=== PATIENT | male | born 1980 | race Caucasian/White ===

== ENCOUNTER 2017-04-09 07:39 | Emergency (ER) | payer BC ==
[2017-04-09 07:47] VITALS: BP 154/90
--- NOTE | 2017-04-09 09:26 | UC ---
Respiratory Complaint HPI - HPI Summary HPI Summary: PT WITH 5 DAY H/O ST(PRIMARILY WITH COUGH), COUGH(PRODUCTIVE OF CLEAR SPUTUM, INTERFERRING WITH SLEEP), MATOS, NAASAL DRAINAGE, BODY ACHES, LOSS OF APPETITE AND 1 EPISODE OF VOMITING. - History of Current Complaint Chief Complaint: UCRespiratory Stated Complaint: SORE THROAT,BODY ACHES,NAUSEA Time Seen by Provider: 04/09/17 08:10 Hx Obtained From: Patient Onset/Duration: Gradual Onset, Lasting Days, Still Present Timing: Constant Severity Initially: Moderate Severity Currently: Moderate Pain Intensity: 4 Character: Cough: Productive Aggravating Factors: Deep Breaths, Recumbent Position Alleviating Factors: Upright Position Associated Signs And Symptoms: Positive: Dyspnea, Fever, Chills, Pleuritic Chest Pain, Wheezing, URI. Negative: Hemoptysis, Nasal Congestion, Hoarseness, Sinus Discomfort - Allergies/Home Medications Allergies/Adverse Reactions: Allergies Allergy/AdvReac Type Severity Reaction Status Date / Time Sulfamethoxazole Allergy Unknown Verified 04/09/17 07:48 w/Trimethoprim Reaction [From Bactrim] Details Home Medications: Home Medications Hydrochlorothiazide TAB* [Hydrodiuril TAB*] 25 mg PO DAILY 04/09/17 [History Confirmed 04/09/17] PMH/Surg Hx/FS Hx/Imm Hx Cardiovascular History: Hypertension - Surgical History Surgical History: None - Family History Known Family History: Positive: Cardiac Disease, Hypertension, Diabetes - Social History Occupation: Employed Full-time Lives: With Family Alcohol Use: Occasionally Substance Use Type: None Smoking Status (MU): Former Smoker Type: Cigarettes Amount Used/How Often: 1/2 ppd When Did the Patient Quit Smoking/Using Tobacco: Sep 2016 Review of Systems Constitutional: Fever, Chills, Fatigue Skin: Negative Eyes: Negative ENT: Sore Throat, Nasal Discharge Respiratory: Cough Cardiovascular: Chest Pain - PLEURITIC Gastrointestinal: Vomiting - 1 EPISODE, Other - LOSS OF APPETITE Genitourinary: Negative Neurological: Headache All Other Systems Reviewed And Are Negative: Yes Physical Exam Triage Information Reviewed: Yes Appearance: Well-Appearing, No Pain Distress, Well-Nourished Vital Signs: Initial Vital Signs Temp 102 F 04/09/17 07:43 Pulse 110 04/09/17 07:43 Resp 18 04/09/17 07:43 BP 154/90 04/09/17 07:43 Pulse Ox 100 04/09/17 07:43 Vital Signs Reviewed: Yes Eyes: Positive: Conjunctiva Clear. Negative: Discharge ENT: Positive: Hearing grossly normal, Pharyngeal erythema, Nasal drainage - CLEAR, TMs normal. Negative: Tonsillar swelling, Tonsillar exudate, Trismus, Muffled/hoarse voice Dental Exam: Normal Neck: Positive: Supple, Tenderness @, Enlarged Nodes @ Respiratory: Positive: Lungs clear, No respiratory distress, No accessory muscle use, Expiration - PROLONGED AT BL BASES Cardiovascular: Positive: RRR, No Murmur Abdomen Description: Positive: Nontender, Soft. Negative: Distended, Guarding Bowel Sounds: Positive: Present Musculoskeletal Exam: Normal Neurological: Positive: Alert, Muscle Tone Normal Psychological: Positive: Age Appropriate Behavior Skin Exam: Normal UC Diagnostic Evaluation - Laboratory O2 Sat by Pulse Oximetry: 100 Respiratory Course/Dx - Course Course Of Treatment: PT WITH EXISTING DX OF HTN P/W ELEVATED BP LIKELY D/T CURRENT CONDITION - Differential Dx/Diagnosis Differential Diagnosis/HQI/PQRI: Bronchitis, Lower Resp Infection Provider Diagnoses: BRONCHITIS Discharge - Discharge Plan Condition: Stable Disposition: HOME Prescriptions: Albuterol HFA INHALER* [Ventolin HFA Inhaler*] 2 puff INH Q4H PRN #1 mdi PRN Reason: Sob/Wheezing Azithromycin TAB* [Zithromax TAB (Z-DEEPTI) 250 mg #6 tabs] 0 mg PO .SEE INSTRUCTIONS #6 tab Benzonatate CAP* [Tessalon 100 MG CAP*] 100 mg PO TID #30 cap guaiFENesin ER TAB [Mucinex*] 600 mg PO BID PRN #1 box PRN Reason: Cough guaiFENesin/CODIEN 100MG-10MG* [Robitussin AC 100Mg-10Mg*] 5 - 10 ml PO BEDTIME PRN #100 udc MDD 10ml PRN Reason: Cough Patient Education Materials: Acute Bronchitis (ED) Additional Instructions: INHALED BRONCHODILATORS: You have received a prescription for an inhaled bronchodilator -- a medication which stimulates the airways in the lung to dilate. This improves the flow of air in asthma, bronchitis, and emphysema. These medicines have some similarity to adrenaline, and can cause similar side effects: shakiness, racing heart, and a sense of nervousness. These side effects decrease with time. Contact your doctor if these side effects are severe. Do not over-use the medicine. Too-frequent use of the inhaler may make it ineffective. Call your doctor if the inhaler is not controlling your symptoms at the prescribed doses. COUGH-SUPPRESSANT & EXPECTORANT MEDICATION: You are to use a cough medication as needed for relief of symptoms. This medicine is a combination of an expectorant (to make the mucous thinner and more easily "coughed up") and a cough suppressant (to reduce the frequency of coughing). The cough-suppressant medicine is related to narcotics. You may experience mild nausea and sleepiness. Some patients who are very sensitive to narcotics may have stomach pain from this medicine. Taking the medicine with food reduces these side effects. Do not drive or work with machinery until you know how this medicine affects you. The expectorant should have no side effects. Iodine-containing expectorants (such as organidin) should not be taken by persons with active thyroid disease unless approved by your doctor. Call the doctor if you develop shortness of breath, hives, rash, itching, lightheadedness, or severe nausea and vomiting. EXPECTORANT MEDICATION: WE SENT IN A SCRIPT FOR MUCINEX SO THAT IT IS EASIER FOR YOU TO PICK THE RIGHT MED AT THE PHARMACY. HOWEVER, YOU CAN ALSO GO TO THE [employer]ORE AND BUY PLAIN GUAIFENESIN WITHOU BINDERS OR FILLERS. An expectorant medicine has been prescribed. This type of drug makes mucous thinner, helping the sinuses, nose, and bronchial tubes to remain free of pus and mucous. Expectorants make a cough less severe and more comfortable, and help infected sinuses drain. In general, antihistamines defeat the purpose of the expectorant by making mucous thicker. They should be avoided unless specifically recommended by your physician. TESSALON PERLES: You have received a prescription for Tessalon Perles (benzonatate). This is a non-narcotic medicine for relief of cough. It usually works in about 15- 20 minutes and lasts around four hours. Tessalon Perles should be swallowed. They should not be chewed or dissolved in the mouth (this can produce temporary numbing of the mouth and choking can occur). If you develop any adverse effects such as wheezing, shortness of breath, hives, rash, itching, or lightheadedness, please return at once. ANTIBIOTICS ARE NOT CURRENTLY INDICATED FOR YOUR CONDITION. HOWEVER, IF YOUR SYMPTOMS WORSEN OR PERSIST FOR MORE THAN 5 MORE DAYS, YOU CAN TAKE THE FOLLOWING MEDICATION: AZITHROMYCIN: Azithromycin (Zithromax) is a broad spectrum antibiotic in the same class as erythromycin. It can treat a variety of bacterial infections, but is most frequently used for respiratory infections. Azithromycin is extremely long-lasting. It accumulates in body tissues and continues to kill bacteria for many days. In order to improve absorption, Azithromycin should be taken at least one hour before or two hours after a meal. It does not have the same strong tendency to upset the stomach as erythromycin and is usually very well tolerated. Patients who have had a rash or other true allergic reactions to erythromycin should not take this medication. Call if you develop gastrointestinal distress, severe diarrhea, rash, hives, itching, or shortness of breath. ANYTIME YOU TAKE AN ANTIBIOTIC, IT IS IMPORTANT TO REPLENISH THE BODY'S SUPPLY OF "GOOD BACTERIA." YOU CAN GET GOOD BACTERIA FROM HIGH QUALITY CULTURED FOODS SUCH LOCAL YOGURT, SOUR KRAUT, ENDY JP, NATURALLY FERMENTED PICKLES AND PROBIOTIC DRINKS. YOU CAN ALSO GET GOOD BACTERIA FROM A PROBIOTIC SUPPLEMENT.
== END 2017-04-09 09:37 | disposition home or self-care (01) ==
LOC: UCCORT 07:39
DX: J40 Bronchitis, not specified as acute or chronic (principal); I10 Essential (primary) hypertension; Z88.2 Allergy status to sulfonamides
CPT/HCPCS: 87651; 99202; G0463

== ENCOUNTER 2019-06-20 10:31 | Day surgery (SDC) | payer BC ==
[~2019-06-20 10:31] MED LIST: Buffered Lidocaine 1% SYRIN* 1 ML/SYRINGE INTRADERM ONE; Lactated Ringers 1000 ML Bag* 1,000 ML IV SCH; Sodium Citrate/Citric Acid* 15 ML UDC PO ONE
[2019-06-20] MEDS ORDERED: Sodium Citrate/Citric Acid* 15 ML UDC ONE (10:37)
[2019-06-20] MEDS ORDERED: ceFAZolin 2 GM PREMIX in ORs 2 GM/50 ML BAG ONE (10:38)
[2019-06-20] MEDS ORDERED: Lidocaine 1% INJ* 10 MG/ML 30 ML SDV ONE (11:21)
[2019-06-20] MEDS ORDERED: Propofol* 10 MG/ML 20 ML BTL ONE ×2 (11:48→12:05)
[2019-06-20] MEDS ORDERED: Lidocaine 2% PF * 5 ML VIAL ONE (11:48)
[2019-06-20] MEDS ORDERED: fentaNYL* 50 MCG/ML 2 ML VIAL (100 MCG VIAL) ONE (11:55)
[2019-06-20] MEDS ORDERED: Dexamethasone IV* 4 MG/ML 1 ML (4 MG) ONE (12:05)
[2019-06-20] MEDS ORDERED: Ketorolac INJ* 30 MG/ML 1 ML VIAL ONE (12:05)
[2019-06-20] MEDS ORDERED: Bupivacaine 0.5% SDV PF* 30ML VIAL ONE (12:20)
[2019-06-20] MEDS ORDERED: Ondansetron INJ* 2 MG/ML VIAL ONE (12:22)
[2019-06-20] MEDS ORDERED: Acetaminophen IV 1GM/100ML * 1,000 MG/100 ML VIAL IVPB ONE (13:59)
[2019-06-20] MEDS ORDERED: fentaNYL* 50 MCG/ML 2 ML VIAL (100 MCG VIAL) IV PRN (13:59)
[2019-06-20] MEDS ORDERED: DiMENhydriNATE IV* 50 MG/ML VIAL IV PUSH PRN (13:59)
[2019-06-20] MEDS ORDERED: Naloxone* 0.4 MG/ML 1 ML VIAL IV PRN (13:59)
[2019-06-20] MEDS ORDERED: Acetaminophen IV 1GM/100ML * 100 ML ONE (14:03)
[2019-06-20 15:26] VITALS: BP 141/95
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
--- NOTE | 2019-06-24 08:45 | OP ---
CC: Dr. Ortiz OPERATIVE NOTE: ADDENDUM: There is a blank in the description of procedure. There was a complete tear of the scapholunate ligament and I was able to drive through to the mid carpal joint from the radial carpal joint. [id number]/[facility]PS #: [id number] MTDD
== END 2019-06-20 15:04 | disposition home or self-care (01) ==
LOC: OREAST 10:31
PROVIDERS: ATTEND Orthopaedic Surgery
DX: S63.512A Sprain of carpal joint of left wrist, initial encounter (principal); X50.0XXA Overexertion from strenuous movement or load, initial encounter; Y92.838 Other recreation area as the place of occurrence of the external cause; I10 Essential (primary) hypertension; K21.9 Gastro-esophageal reflux disease without esophagitis; F17.210 Nicotine dependence, cigarettes, uncomplicated
CPT/HCPCS: 76000; A9270-GY; C1713; C1776; J0690; J1100; J1885; J2405; J2704; J3010; J3490

== ENCOUNTER 2019-08-22 09:45 | Day surgery (SDC) | payer BC ==
--- NOTE | 2019-08-08 04:55 | HP ---
HISTORY AND PHYSICAL: DATE OF ADMISSION/SURGERY: 08/22/19 DATE OF OFFICE VISIT: 08/06/19 SURGEON: Taylor Ortiz MD.* (DICTATED BY CAIO JEREZ) PROCEDURE: Removal of hardware, left wrist. CHIEF COMPLAINT: Left wrist pain. HISTORY OF PRESENT ILLNESS: Mr. Santiago is a 38-year-old gentleman who underwent a left wrist arthroscopy and scapholunate ligament repair on 06/20/19. He is doing well; however, he elects to have the hardware removed from his left wrist and this is scheduled for 08/22/19. PAST MEDICAL HISTORY: Hypertension. PAST SURGICAL HISTORY: Ear tubes and left wrist arthroscopy with scapholunate ligament repair. CURRENT MEDICATIONS: 1. Chantix. 2. Lisinopril. ALLERGIES: BACTRIM. FAMILY HISTORY: Diabetes and coronary artery disease. SOCIAL HISTORY: He is a 38-year-old gentleman, lives with his girlfriend. He smokes a quarter to half a pack a day of cigarettes. He uses occasional alcohol and marijuana. REVIEW OF SYSTEMS: A complete 14-point review of systems was reviewed with the patient. It was all negative or noncontributory. He denies history of DVT, PE , hepatitis, HIV, or anesthesia problems. PHYSICAL EXAMINATION GENERAL: He is well developed, well nourished, in no acute distress. VITAL SIGNS: He stands 68 inches tall, weighs 155 pounds. Blood pressure is 124/68 and pulse is 78. HEENT: Normocephalic, atraumatic. NECK: Supple. No palpable lymph nodes. PULMONARY: The lungs are clear to auscultation bilaterally. CARDIO: Regular rate and rhythm. Strong S1, S2. ABDOMEN: Soft, nontender, nondistended. NEUROLOGICAL: He is alert and oriented x3. MUSCULOSKELETAL: Left upper extremity: The skin is intact. There are no open wounds or abrasions. He has a 2+ distal pulse. He has intact sensation. ASSESSMENT AND PLAN: Mr. Santiago is a 38-year-old gentleman who underwent a left wrist arthroscopy with scapholunate ligament repair on 06/20/[address] Ortiz. He has elected to have the hardware removed the left wrist and this is scheduled for 08/22/19. The risks and benefits were discussed with the patient today and all of his questions were answered. He will follow up with Dr. Ortiz in 7 to 10 days after the surgery. CAIO JEREZ [id number]/[facility] #: [id number] KUSUM
[~2019-08-22 09:45] MED LIST changes: +Famotidine IV* 10 MG/ML 2 ML (20 mg) IV ONE; +Famotidine IV* 10 MG/ML 2 ML (20 mg) ONE; -Sodium Citrate/Citric Acid* 15 ML UDC PO ONE
[2019-08-22] MEDS ORDERED: Midazolam* 1 MG/ML 5 ML VIAL (5 MG) ONE (11:00)
[2019-08-22] MEDS ORDERED: Propofol* 10 MG/ML 20 ML BTL ONE (11:05)
[2019-08-22] MEDS ORDERED: Ketorolac INJ* 30 MG/ML 1 ML VIAL ONE (11:05)
[2019-08-22] MEDS ORDERED: Lidocaine 2% PF * 5 ML VIAL ONE (11:05)
[2019-08-22] MEDS ORDERED: Ondansetron INJ* 2 MG/ML VIAL ONE (11:05)
[2019-08-22] MEDS ORDERED: Bupivacaine 0.5% SDV PF* 30ML VIAL ONE (11:27)
[2019-08-22] MEDS ORDERED: Midazolam* 1 MG/ML 2 ML VIAL (2 MG) ONE (11:49)
[2019-08-22] MEDS ORDERED: fentaNYL* 50 MCG/ML 2 ML VIAL (100 MCG VIAL) ONE (11:50)
[2019-08-22] MEDS ORDERED: Naloxone* 0.4 MG/ML 1 ML VIAL IV PRN (12:02)
[2019-08-22] MEDS ORDERED: Acetaminophen TAB* 325 MG PO PRN (12:02)
[2019-08-22 12:56] VITALS: BP 138/92
--- NOTE | 2019-08-22 23:58 | OP ---
CC: Dr. Ortiz OPERATIVE REPORT: DATE OF OPERATION: 08/22/19 DATE OF : 80 SURGEON: Taylor Ortiz MD NOTCHING MACHINE OPERATOR: CAIO Polanco ANESTHESIA: Local MAC. PRE-OP DIAGNOSIS: Status post scapholunate ligament repair of the left wrist. POST-OP DIAGNOSIS: Status post scapholunate ligament repair of the left wrist. OPERATIVE PROCEDURE: Pin removal, left wrist. ESTIMATED BLOOD LOSS: Zero. TOURNIQUET TIME: About 10 minutes. INDICATION FOR PROCEDURE: Shiva is a 38-year-old male who had a scapholunate ligament repair about 2 months ago. He presents for pin removal. DESCRIPTION OF PROCEDURE: The patient was brought to the operating room and was given a sedation ane sthetic and local infiltration of 10 cc of 1% plain lidocaine on the radial aspect of his left wrist. Skin of his left upper extremity was prepped and draped in the usual sterile fashion. The hand and forearm were exsanguinated and the tourniquet elevated to 250 mmHg. A longitudinal incision was mad e measuring about 5 mm in length over each pin and the pins were removed without difficulty. The wou nds were irrigated and the skin edges were reapproximated with 4-0 nylon suture. The wounds were val ssed with Xeroform, 4x4, Webril, and an Hernan wrap with a volar splint. The patient tolerated the proc edure well and was brought to the recovery room in good condition. [id number]/[facility] #: [id number]
== END 2019-08-22 12:45 | disposition home or self-care (01) ==
LOC: OREAST 09:45
PROVIDERS: ATTEND Orthopaedic Surgery
DX: Z47.2 Encounter for removal of internal fixation device (principal); I10 Essential (primary) hypertension; F17.210 Nicotine dependence, cigarettes, uncomplicated; S63.512D Sprain of carpal joint of left wrist, subsequent encounter; X58.XXXD Exposure to other specified factors, subsequent encounter; Y92.9 Unspecified place or not applicable; K21.9 Gastro-esophageal reflux disease without esophagitis; Z87.442 Personal history of urinary calculi
CPT/HCPCS: 88300; J1885; J2250; J2405; J2704; J3010; J3490

== ENCOUNTER 2019-09-02 11:31 | Day surgery (SDC) | payer BC ==
--- NOTE | 2019-08-28 13:32 | HP ---
AMENDED REPORT NOW INCLUDES DESIGNATED COSIGNER PREOPERATIVE HISTORY AND PHYSICAL: DATE OF ADMISSION/SURGERY: 09/02/19 DATE OF OFFICE VISIT/ENCOUNTER: 08/28/19 ATTENDING SURGEON: Taylor Ortiz MD * (DICTATED BY CAIO STAFFORD) PROCEDURE: Left thumb tendon transfer. HISTORY OF PRESENT ILLNESS: This is a 38-year-old male who underwent a left wrist scapholunate ligament repair on 06/20/19 and subsequent pin removal on . He continued to work throughout the postoperative period. While at work a few days ago, he twisted his wrist. He was not lifting anything, but he felt a sudden pop and then he was not able to use his thumb very well. He is not complaining of any pain. He is having trouble extending his thumb at the IP joint. After evaluation, it was determined that he has ruptured his extensor pollicis longus tendon. Dr. Ortiz is recommending surgical intervention at this time for best outcome and the patient has consented to proceed. PAST MEDICAL HISTORY: Hypertension. PAST SURGICAL HISTORY: 1. Ear tube placement. 2. Left wrist arthroscopy with scapholunate ligament repair. 3. Pin removal, left wrist. CURRENT MEDICATIONS: 1. Chantix 0.5 mg daily. 2. Lisinopril 1 tab daily. ALLERGIES: BACTRIM. FAMILY MEDICAL HISTORY: Diabetes and coronary artery disease. SOCIAL HISTORY: The patient is a 38-year-old male. He lives with his girlfriend. 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 He is a current smoker, he smokes a quarter to a half pack per day, but he is trying to quit. He smokes marijuana occasionally and drinks alcohol on occasion. REVIEW OF SYSTEMS: Negative for general, cephalic, cardiovascular, respiratory , GI, , other musculoskeletal, integumentary, endocrine, neurologic, and hematologic symptoms. Infectious Disease: Negative for MRSA, hepatitis C, HIV. PHYSICAL EXAMINATION GENERAL: A well-developed, well-nourished 38-year-old male, in no acute distress. VITAL SIGNS: Height 5 feet 8 inches, weight 155 pounds. Pulse rate 100, blood pressure 168/98. HEENT: Normocephalic, atraumatic. Pupils are equal, round, and reactive to light and accommodation. Extraocular movements are intact. Throat is clear. NECK: Supple. No palpable lymph nodes. PULMONARY: Lungs are clear to auscultation bilaterally. No wheezes, rales, or rhonchi. CARDIOVASCULAR: Regular rate and rhythm. S1, S2. No murmurs, rubs, or gallops. No edema. ABDOMEN: Positive bowel sounds. Soft, nontender. NEUROLOGICAL: Alert and oriented x3. Cranial nerves II through XII are intact. Sensation is intact to light touch. MUSCULOSKELETAL: On exam of his left hand, his extensor pollicis longus is not functioning. The incisions from the pin removal are benign and sutures are in place. His EPL has defect as it is palpated along its length that it is discontinuous right at the site of the pins. He is not able to extend his thumb IP joint. His skin is otherwise intact. Incisions are healing nicely. Neurovascular function is intact. IMPRESSION: Left extensor pollicis longus rupture after scapholunate ligament repair. PLAN: The patient is scheduled to undergo a right thumb tendon transfer from the EIP to the EPL with Dr. Ortiz on 09/02/19. He will return to the office 10 days postop for followup and suture removal. A prescription for Marshall was e-scribed to the patient's pharmacy for postoperative pain management. CAIO STAFFORD [id number]/[facility] #: [id number] MTDD
[~2019-09-02 11:31] MED LIST changes: +Dexamethasone IV* 4 MG/ML 1 ML (4 MG) IV SLOW PU ONE; -Famotidine IV* 10 MG/ML 2 ML (20 mg) ONE
[2019-09-02] MEDS ORDERED: ceFAZolin 2 GM PREMIX in ORs 2 GM/50 ML BAG ONE (11:36)
[2019-09-02] MEDS ORDERED: Dexamethasone IV* 4 MG/ML 1 ML (4 MG) ONE (11:36)
[2019-09-02] MEDS ORDERED: Famotidine IV* 10 MG/ML 2 ML (20 mg) ONE (11:36)
[2019-09-02] MEDS ORDERED: Lidocaine 1% INJ* 10 MG/ML 30 ML SDV ONE (14:01)
[2019-09-02] MEDS ORDERED: fentaNYL* 50 MCG/ML 2 ML VIAL (100 MCG VIAL) ONE (14:17)
[2019-09-02] MEDS ORDERED: KETAMINE HCL* 50 MG/ML 10 ML VIAL ONE (14:17)
[2019-09-02] MEDS ORDERED: Midazolam* 1 MG/ML 2 ML VIAL (2 MG) ONE (14:17)
[2019-09-02] MEDS ORDERED: Bupivacaine 0.5% SDV PF* 30ML VIAL ONE (14:47)
[2019-09-02] MEDS ORDERED: HYDROmorphone INJ1* 1 MG/ML SYRINGE IV PRN (15:21)
[2019-09-02] MEDS ORDERED: DiMENhydriNATE IV* 50 MG/ML VIAL IV PUSH PRN (15:21)
[2019-09-02] MEDS ORDERED: Naloxone* 0.4 MG/ML 1 ML VIAL IV PRN (15:21)
[2019-09-02] MEDS ORDERED: fentaNYL* 50 MCG/ML 2 ML VIAL (100 MCG VIAL) IV PRN (15:21)
[2019-09-02 16:53] VITALS: BP 156/105
--- NOTE | 2019-09-02 19:58 | OP ---
DATE OF OPERATION: 09/02/[address] [facility] DATE OF : 80 SURGEON: Taylor Ortiz MD GLASS BLOWING LATHE OPERATOR: CAIO Alvarado ANESTHESIA: General. PRE-OP DIAGNOSIS: Extensor pollicis longus tendon rupture on the left. POST-OP DIAGNOSIS: Extensor pollicis longus tendon rupture on the left. OPERATIVE PROCEDURE: EIP to EPL tendon transfer. ESTIMATED BLOOD LOSS: Zero. TOURNIQUET TIME: About 25 minutes. INDICATIONS FOR PROCEDURE: Shiva is a 38-year-old male, who suffered a scapholunate ligament injury several months ago. He had a scapholunate ligament repair. He had pins placed. They were left in place for 8 weeks and then were removed. Shortly after the pins were removed, the patient felt a pop in his wrist and then was unable to extend his thumb. 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 On exam, he had ruptured his EPL tendon probably where the EPL tendon encountered the pins from the scapholunate ligament repair. He presents for EIP to EPL tendon transfer. DESCRIPTION OF PROCEDURE: The patient was brought to the operating room, was given a general anesthetic and placed in the supine position on the operating table with a tourniquet around his left upper arm. The skin of his left upper extremity was prepped and draped in the usual sterile fashion. The upper extremity was exsanguinated and the tourniquet elevated to 250 mmHg. A zig-zag incision was made centered at the site of the pin removal and we were able to visualize the EPL tendon, which indeed had completely ruptured. Branches of the radial sensory nerve were located and these were retracted by the surgical sales representative, Sruthi Rubio, whose assistance was essential for safe completion of the case for protection of the nerves. Next, a transverse incision was made at the extensor amezcua of the index finger and we isolated the EIP tendon on the ulnar aspect of the extensor amezcua. It was transected distally and then a second longitudinal incision was made at the radiocarpal joint and we were able to bring the EIP tendon into this wound and then re-routed across the back of the hand to meet up the distal stump of the EPL tendon. With a Pulvertaft weave and suture of 4-0 nylon and with the thumb in extension, the EIP tendon was transferred to the EPL tendon. With tenodesis effect, there was good position of the thumb and the tendon was able to glide nicely in the repair bed. The wounds were all copiously irrigated with saline. The skin edges were reapproximated with 4-0 nylon suture. The wounds were dressed with Xeroform, 4x4, Webril, and a thumb spica splint. The patient tolerated the procedure well and was brought to the recovery room in good condition. [id number]/[facility] #: [id number] KUSUM
== END 2019-09-02 17:05 | disposition home or self-care (01) ==
LOC: OREAST 11:31
PROVIDERS: ATTEND Orthopaedic Surgery
DX: M66.242 Spontaneous rupture of extensor tendons, left hand (principal); I10 Essential (primary) hypertension; F17.210 Nicotine dependence, cigarettes, uncomplicated
CPT/HCPCS: J0690; J1100; J2250; J3010; J3490